=== PATIENT | female | born 1990 | race Caucasian/White ===

== ENCOUNTER 2025-05-18 12:42 | Outpatient (AMB) | payer OTHER, SELFPAY ==
--- NOTE | 2025-05-18 12:45 | A.OFFPC_ITS ---
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 She is transferring [place] [facility]. She has a hx gestational diabetes, hpv. She has been having chest pain for the last few months. She states she gets radiation down the left arm. The pain is improved with sleep/rest. It will last all day and vary in intensity. It does not appear to be worsened with exertion or certain movements. It does not appear to be worsened with food. No difficulty swallowing or notable heartburn. She states she is also getting some lightheaded. The lightheaded sensation does not always correlate with the chest pain but they sometimes occur together. It does get worse if she stands for awhile. She feels better if she sits down and relaxes. She thinks the chest pain is triggered by stress. She is usually well hydrated. No fam hx of heart disease. No palpitations, sob, nausea. No headaches. No weakness. She has been more stressed recently. Nca Certified Concierge: [facility]. States that her last PCP told her that she had HPV but did not elaborate or schedule follow up. She has not seen a health and safety trainer. 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 1. Little interest or pleasure in doing things: not at all 2. Feeling down, depressed, or hopeless: not at all 3. Trouble falling or staying asleep, or sleeping too much: not at all 4. Feeling tired or having little energy: not at all 5. Poor appetite or overeating: not at all 6. Feeling bad about yourself - or that you are a failure or have let yourself or your family down: not at all 7. Trouble concentrating on things, such as reading the newspaper or watching television: not at all 8. Moving or speaking so slowly that other people could have noticed. Or the opposite - being so fidgety or restless that you have been moving around a lot more than usual: not at all 9. Thoughts that you would be better off or of hurting yourself in some way: not at all Total score: 0 Depression Screening Interpretation: Negative Depression Screening Done: Yes 95845 - PHQ-9 Billing: Yes Source: Developed by Drs. Abdelrahman Yao, Bety Alston, Sonido Hadadd and colleagues, with an educational tyron from [employer]. Thrive Questionnaire Date Thrive assessed: 05/18/25 I am a: Patient What is your living situation today?: I have a steady place to live Within the past 12 months, did the food you bought not last and you didn't have the money to get more?: Never true Within the past 12 months, did you worry whether your food would run out before you got money to buy more?: Never true Do you have trouble paying for medicines?: No Do you have trouble getting transportation to medical appointments?: No Do you have trouble paying your heating and electricity bill?: No Do you have trouble taking care of your child, family member or friend?: No Do you have trouble with day-to-day activities such as bathing, preparing meals, shopping, managing finances, etc.?: No Are you currently unemployed and looking for a job?: No Are you interested in more education?: No Please select the resources that you would like help with: None Currently or been in a relationship where the following occur: No concerns reported THRIVE Score: 0 AUDIT C Alcohol Use Questionnaire (AUDIT-C) 1. How often do you have a drink containing alcohol?: 2-3 times a week 2. How many drinks containing alcohol do you have on a typical day when you are drinking?: 1 or 2 3. How often do you have six or more drinks on one occasion?: Never Total Score: 3 BETTY-7 AMB Questionnaire BETTY-7 Date BETTY - 7 assessed: 05/18/25 Feeling nervous, anxious, or on edge: 3 = Nearly every day Not being able to stop or control worryin = More than half the days Worrying too much about different things: 3 = Nearly every day Trouble relaxin = Not at all Being so restless that it is hard to sit still: 0 = Not at all Becoming easily annoyed or irritable: 0 = Not at all Feeling afraid as if something awful might happen: 1 = Several days Total BETTY-7 score (0-4 normal; 5-9 mild; 10-14 moderate; 15-21 severe): 9 Source: Developed by Drs. Abdelrahman Yao, Bety Alston, Sonido Haddad and colleagues, with an educational tyron from [employer]. BETTY-7 Assessment Billing BETTY-7 Assessment Tool: BETTY-7 Assessment 39971 Physical exam (Primary Care) Vital Signs: Last Vital Signs Temp 98.3 F 05/18/25 12:50 Pulse 72 05/18/25 12:50 Resp 12 05/18/25 12:50 BP 102/68 05/18/25 12:50 Pulse Ox 97 05/18/25 12:50 Oxygen Delivery Method Room Air 05/18/25 12:50 BMI result Body Mass Index 25.9 Tobacco/Smoking Status: Tobacco use Status Tobacco use date assessed 05/18/25 05/18/25 12:52 Patient Tobacco Use Status Former Tobacco user 05/18/25 12:52 e-Cigarette/Vaping Use Never Used 05/18/25 12:52 PHQ-9: PHQ-9 Score PHQ-9: Total score 0 05/18/25 14:03 Depression Screening Interpretation: Negative Thrive Assessment: Date of Thrive Assessment Date Thrive assessed 05/18/25 05/18/25 14:03 Currently or been in a relationship where the following occur: No concerns reported Const Orientation/consciousness: patient oriented x3 HENMT Ears: hearing grossly normal bilaterally Neck Thyroid: Thyroid normal Lymphatic: no lymphadenopathy noted Resp Auscultation: clear to auscultation bilaterally Cardio Rate: regular rate Rhythm: regular rhythm Heart sounds: S1 normal heart sound present and S2 normal heart sound present GI Inspection: Yes normal to inspection Palpation (GI): Soft to palpation and Other GI palpation findings present (nontender, no cva tenderness) Auscultation: normoactive bowel sounds Rectal Exam - Female: deferred Skin General skin exam: no rashes or lesions noted Neuro General: patient oriented x3, gait normal and no focal motor deficits Office Procedures EKG Details: EKG today in office normal sinus rhythm at a rate of. Nonspecific STT wave abnormalities noted. No prior study to compare. EKG interpreted myself and Dr. Zelaya. [id number], Complete Coding Level of Care Code New Pt Level 4 (75604) Complex EM visit Add On G2211 Diagnoses Chest pain, atypical R07.89 Dizziness R42 CPT Codes EKG - CPT: 60942-Wefbisnjoanefoyzb, Complete ([id number]) Additional Codes BETTY-7 Assessment Billing - BETTY-7 Assessment Tool: BETTY-7 Assessment 19471 ([id number]) PHQ-9 - 98347 - PHQ-9 Billing: Yes ([id number]) Assessment & Plan Assessment & Plan (1) Chest pain, atypical: Code(s): R07.89 - Other chest pain Category: Medical Plan: Chest x-ray ordered EKG today in office Stress test, Holter and echo ordered given the dizziness in the persistence of symptoms. Short term follow up. Warning signs of chest pain that would require emergent medical treatment were discussed Labs ordered (2) Dizziness: Code(s): R42 - Dizziness and giddiness Category: Medical Plan: As above. Orders: Orders Complete Blood Count Auto Diff 05/18/25 R07.89 - Other chest pain, R42 - Dizziness and giddiness TSH reflex Free T4 05/18/25 R07.89 - Other chest pain, R42 - Dizziness and giddiness Vitamin B12 and Folate 05/18/25 R07.89 - Other chest pain, R42 - Dizziness and giddiness CA stress test 05/18/25 R07. - Other chest pain, R42 - Dizziness and giddiness CA echo transthoracic complete 05/18/25 R0 - Other chest pain, R42 - Dizziness and giddiness Comprehensive Met. Panel 05/18/25 R0. - Other chest pain, R42 - Dizziness and giddiness Hemoglobin A1c 05/18/25 R07. - Other chest pain, R42 - Dizziness and giddiness, R73.01 - Impaired fasting glucose Lipid Panel 05/18/25 R0. - Other chest pain, R42 - Dizziness and giddiness AMB EKG-In Office 05/18/25 R0. - Other chest pain, R42 - Dizziness and giddiness Zinc 05/18/25 R0. - Other chest pain, R42 - Dizziness and giddiness ECG holter monitor 24 hour 05/18/25 R07. - Other chest pain, R42 - Dizziness and giddiness XR chest 2V 05/18/25 R0 - Other chest pain, R42 - Dizziness and giddiness Referrals EMISSIONS TESTING TECHNICIAN Referral B97.7 - Papillomavirus as the cause of diseases classified elsewhere
[2025-05-18 12:50] VITALS: BP 102/68; PULSE 72; RESP 12; TEMP 36.8; O2SAT 97; BMI 25.9
== END 2025-05-18 13:29 | disposition home or self-care (01) ==
LOC: HO.HMCFM 12:42
PROVIDERS: PCP Physician Assistant; Visit Provider Physician Assistant
DX: R07.89 Other chest pain (principal); R42 Dizziness and giddiness

== ENCOUNTER → 2025-05-18 12:42 | Outpatient (BNVA) | payer OTHER, SELFPAY | PROVIDERS: PCP Physician Assistant; Visit Provider Physician Assistant | DX: R42 Dizziness and giddiness (principal); R07.89 Other chest pain; Z86.32 Personal history of gestational diabetes | CPT/HCPCS: 93005; 96127 ==

== ENCOUNTER → 2025-07-07 09:46 | Outpatient (REF) | payer OTHER, SELFPAY ==
--- NOTE | 2025-07-07 09:49 | CA_ITS ---
Acquisition Time: 2025-07-07 09:53:51 Total Exercise Time: 00:09:35 Test Indications: CP DIZZINESS Medications: NONE Protocol: HEIDY Max HR: 162 BPM 86% of Pred: 187 BPM Max BP: 122/54 mmHG Max Work Load: 11.0 METS Exericse stress test with exercise 9 mins 35 secs of Heidy Protocol, achieving 87% MPHR, with reports of 3/10 left upper chest pain at baseline - describes as pinching sensation that resolved with exercise, without any arrythmias, with normotensive response to exercise. Without any EKG changes meeting criteria for ischemia. In recovery, pt continued to have no chest pain. Test reviewed with Dr. Albright. Referred By: Reba Singh Electronically Signed By: Moose Fernández
--- NOTE | 2025-07-07 09:49 | HM_ITS ---
* Total monitoring time one day. * Underlying rhythm is sinus with an average rate of 66/Min. * Isolated ventricular ectopic beat. * No significant pauses or high-grade AV blocks. * No patient markers or diary events. MTDD
--- OUTSIDE RECORDS SUMMARY | 2025-07-07 11:05 | XMS_ITS | Clinical Summary ---
Author Organization [facility] Address [address] [address] Phone Care Team Providers Care Chief Ii Dispatcher Name Role Phone Unknown, Unknown Primary Care Provider Lynsey lable Allergies No known active allergies Medications No known medications Active Problems No known active problems Social History Tobacco Use Types Packs/Day Years Used Date Smoking Tobacco: Never Assessed Education Answer Date Recorded Are you interested in more education? Not on leda e 03/14/2023 Are you concerned about learning? Not on file 03/14/2023 No 03/14/2023 No 03/14/2023 Digital Access Answer Date Recorded No 04/12/2023 No 04/12/2023 Reliable internet access at home? Not on file 04/12/2023 Device with a working camera? Not on file Comments Unknown Sex and Gender Information Value Date Recorded Sex Assigned at Not on file Legal Sex Female 11:19 AM EST Gender Identity Not on file Sexual Orientation Not on file Last Filed Vital Signs Vital Sign Reading Time Taken Comments Blood Pressure 110/70 09/30/2023 1:35 PM EST Pulse 80 09/30/2023 1:35 PM EST Temperature 36.7 C (98 F) 09/30/2023 1:35 PM EST Respiratory Rate 18 09/30/2023 1:35 PM EST Oxygen Saturation 100% 09/30/2023 1:35 PM EST Inhaled Oxygen Concentration - - Weight - - Height - - Body Mass Index - - Plan of Treatment Health Maintenance Due Date Last Done Comments DEPRESSION SCREENING 2004 SMOKING Hx and SMOKELESS TOBACCO SCREENING 2005 HEPATITIS C SCREENING 2010 HIV ONE-TIME SCREENING (18-65 YEARS) 2010 PAP SMEAR 2013 Adult Td,Tdap Booster 01/10/2014 01/10/2004 COVID-19 VACCINE ( season) 2024 01/18/2022, 04/05/2021, 03/07/2021 HIB VACCINES Completed 09/21/1993, 11/18, 1992, Additional history exists HEPATITIS A VACCINES Aged Out No long er eligible based on patient's age to complete this topic MENINGOCOCCAL VACCINES (ACWY) Aged Out No longer eligible based on patient's age to complete this topic MENINGOCOCCAL VACCINES (B) Aged Out N o longer eligible based on patient's age to complete this topic PNEUMOCOCCAL VACCINES (0-49 years) Aged Out No longer eligible based on patient's age to complete this topic Medical Devices Not on file Insurance HMO Member Subscriber Plan / Payer (Ef fective 2017-Present) Name:Mariana Clark Relation to Subscriber:Child Name:JIMYBRITT Date of :1967 (Home) Address: [address] [place] [address] Payer ID:Not on file Type:O Address: [address] PPO [employer] [place] [address] [place], [place] [address]O HMO Member Subscriber Plan / Payer (Ef fective 2017-Present) Name:Mariana Clark Relation to Subscriber:Child Name:SUZANNEJANISBRITT Casarez Date of :1967 (Home) Address: [address] [place] [address] Payer ID:Not on file Type:O [address] O O Member Subscriber Plan / Payer (Ef fective 2017-Present) Name:Mariana Clark Relation to Subscriber:Child Name:BRITT CLARK Date of :1967 (Home) Address: [address] [place] [address] Payer ID:Not on file Type:O Address: [address] PPO HMO Member Subscriber Plan / Payer (Ef fective 2017-Present) Name:Mariana Clark Relation to Subscriber:Child Name:BRITT CLARK Date of :1965 (Home) Address: [address] [place] [address] Payer ID:Not on file Type:O Address: [address] PPO Care Teams Chief Ii Dispatcher Relationship Specialty Start Date End Date Unknown, Unknown, PCP - General 11/28/17 Additional Source Comments The information contained in this document represents components of the legal health record. It is not the complete legal health record.[facility]
== END ==
LOC: HO.CARD 09:46
PROVIDERS: PCP Physician Assistant; Visit Provider Physician Assistant
DX: R07.89 Other chest pain (principal); R42 Dizziness and giddiness
CPT/HCPCS: 93017; 93225

== ENCOUNTER → 2025-07-07 09:49 | Outpatient (BNV) | payer OTHER, SELFPAY | PROVIDERS: PCP Physician Assistant | DX: R07.89 Other chest pain (principal) | CPT/HCPCS: 93016; 93018 ==

== ENCOUNTER 2025-08-20 10:07 | Outpatient (REF) | payer OTHER, SELFPAY ==
--- NOTE | ~2025-08-20 | XR_ITS ---
CLINICAL HISTORY: R07.89 - Other chest pain 2 view chest x-ray. Comparison: None Findings: Normal lung volumes. Lungs are clear. No pneumothorax or pleural effusion. Heart size normal. No passive venous congestion. No midline shift or tracheal deviation. No acute fracture. Nipple piercing on the left Impression: 1. No acute cardiopulmonary disease. This document has been electronically signed by: Modesto Nur MD on 08/22/2025 15:39:14
--- OUTSIDE RECORDS SUMMARY | 2025-08-20 10:11 | XMS_ITS | Clinical Summary ---
Author Organization [facility] Address [address] [address] Phone Care Team Providers Care Sheriff Deputy Name Role Phone Unknown, Unknown Primary Care [...] SMEAR 2013 Adult Td,Tdap Booster 01/10/2014 01/10/2004 INFLUENZA VACCINE (#1) 2025 COVID-19 VACCINE ( season) 2025 01/18/2022, 04/05/2021, 03/07/2021 HIB VACCINES Completed 09/21/1993, [...] Name:BRITT CLARK Date of :1965 (Home) Address: [address] [place] [address] Payer ID:Not on file Type:O Address: [address] PPO [facility] [address] [place], [place] [address] [address] [place], [place] [address]O [facility] Address: [id number] [place], [place] [address]O [facility] HMO HMO O HMO Member Subscriber Plan / Payer (Ef fective 2017-Present) Name:Mariana Clark Relation to Subscriber:Child Name:BRITT CLARK Date of :1965 (Home) Address: [address] [place] [address] Payer ID:Not on file Type:HMO Address: [address] PPO HMO Member Subscriber Plan / Payer (Ef fective 2017-Present) Name:DaphniemansiMariana lomeli Relation to Subscriber:Child Name:BRITT CLARK Date of :1965 (Home) Address: [address] [place] [address] Payer ID:Not on file Type:O Address: [address] PPO Care Teams Sheriff Deputy Relationship Specialty Start Date End Date Unknown, Unknown, PCP - General 11/28/17 Additional Source Comments The information contained in this document represents components of the legal health record. It is not the complete legal health record.[facility]
[2025-08-20 10:53] LABS: MANUAL DIFF FLAG NO
[2025-08-20 11:13] LABS: Hematocrit 41.4 % (37.0-47.0); Hemoglobin 14.2 g/dl (12.0-16.0); Imm Gran Abs Auto 0.01 X10*3/uL (0.00-0.03); Imm Gran Pct Auto 0.2 % (0.0-0.4); Lymphocytes Absolute Auto 1.6 X10*3/uL (1.2-4.9); Mean Corpuscular HGB Conc 34.3 g/dl (31.0-35.0); Mean Corpuscular Hemoglobin 30.4 pg (27.0-33.0); Mean Corpuscular Volume 88.7 fL (80.0-98.0); NRBC Abs Auto 0.000 X10*3/uL (0.0-0.012); NRBC Pct Auto 0.0 /100WBC (0.0-0.2); Platelet Count 244 X10*3/uL (160-400); Red Blood Count 4.67 X10*6/uL (4.20-5.50); White Blood Count 6.5 X10*3/uL (4.8-10.8)
[2025-08-20 12:15] LABS: Folate 11.1 ng/mL (> or = 4.0); Vitamin B12 566 pg/mL (200-900)
[2025-08-20 12:30] LABS: Alanine Aminotransferase 48 U/L (0-31); Albumin Level 4.7 g/dL (3.5-5.0); Alkaline Phosphatase 46 U/L (39-117); Anion Gap 11 (12-20); Aspartate Amino Transferase 114 U/L (5-31); Blood Urea Nitrogen 18 mg/dL (9-16); Calcium 9.4 mg/dL (8.4-10.2); Carbon Dioxide 25 mmol/L (22-29); Chloride 105 mmol/L (96-108); Cholesterol 196 mg/dL (<200); Estimated Glomerular Filt Rate > 60; HDL Cholesterol 68 mg/dL (>40); Potassium 4.2 mmol/L (3.3-5.1); Sodium 137 mmol/L (135-145); Total Protein 7.8 g/dL (6.5-8.0); Triglycerides 77 mg/dL (<150)
== END 2025-08-20 10:08 | disposition home or self-care (01) ==
LOC: HO.XRAY 10:07
PROVIDERS: PCP Physician Assistant; Visit Provider Physician Assistant
DX: Z13.29 Encounter for screening for other suspected endocrine disorder (principal); R42 Dizziness and giddiness; R73.01 Impaired fasting glucose; R07.89 Other chest pain
CPT/HCPCS: 36415; 71046; 80053; 80061; 82607; 82746; 83036; 84443; 84630; 85025

== ENCOUNTER → 2025-08-20 10:49 | Outpatient (BNV) | payer OTHER, SELFPAY | PROVIDERS: PCP Physician Assistant; Visit Provider Radiology Diagnostic Radiology | DX: R07.89 Other chest pain (principal) | CPT/HCPCS: 71046 ==

== ENCOUNTER 2025-08-24 08:52 | Outpatient (REF) | payer OTHER, SELFPAY | END 2025-08-24 08:53 | disposition home or self-care (01) | LOC: HO.WFDLDS 08:52 | PROVIDERS: PCP Physician Assistant; Visit Provider Physician Assistant | DX: R94.5 Abnormal results of liver function studies (principal); R79.89 Other specified abnormal findings of blood chemistry; R19.5 Other fecal abnormalities | CPT/HCPCS: 96127 ==

== ENCOUNTER 2025-08-24 08:52 | Outpatient (AMB) | payer OTHER, SELFPAY ==
--- NOTE | 2025-08-24 08:53 | A.OFFPC_ITS ---
Vital Signs 08/24/25 08:56 Height 5 ft 5.04 in Weight 122 lb 6 oz BMI 20.3 BP 96/62 Blood Pressure Location Lt brachial Position Sitting Respiration 12 Pulse 69 Pulse Source Pulse Oximeter Pulse Oximetry (%) 98 Oxygen Delivery Method Room Air Intake Visit Reasons: labs and meds Intake Note: Follow and lab results. Needs to reschedule echo. Interior Systems Carpenter Required: No Allergies No Known Allergies Allergy (Verified 08/24/25 08:56) Medication List - Last Reconciled 08/24/25 by Reba Singh PA-C No Known Home Meds Tobacco use date assessed: 05/18/25 Dental Screening Dental Screen Date: 05/18/25 HPI labs and meds HPI Details Patient is a 35-year-old female who presents today for a follow up. She has a hx gestational diabetes, hpv. She has lost 30 lbs in the last 2 months with diet and exercise. She hired a personal clothing laundry aide. She quit drinking. She states for years she was drinking heavily and then gradually quit a few weeks ago. She tells me that at times she has loose stools but it seems to be triggered by certain foods that are fried or in fat. It is not all the time. She tells me she wants to make sure that she does not have a parasite. There has been no travel or any known sick contacts. No abdominal pain, fevers or chills. No blood in her stool. No palpitations, sob, nausea. No headaches. No weakness. [employer]otive [employer] In[employer] Servicer: [facility] States that her last PCP told her that she had HPV but did not elaborate or schedule follow up. She has not seen a logistics service representative. 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 1. Little interest or pleasure in doing things: not at all 2. Feeling down, depressed, or hopeless: not at all 3. Trouble falling or staying asleep, or sleeping too much: not at all 4. Feeling tired or having little energy: not at all 5. Poor appetite or overeating: not at all 6. Feeling bad about yourself - or that you are a failure or have let yourself or your family down: not at all 7. Trouble concentrating on things, such as reading the newspaper or watching television: not at all 8. Moving or speaking so slowly that other people could have noticed. Or the opposite - being so fidgety or restless that you have been moving around a lot more than usual: not at all 9. Thoughts that you would be better off or of hurting yourself in some way: not at all Total score: 0 Depression Screening Interpretation: Negative Depression Screening Done: Yes 49095 - PHQ-9 Billing: Yes Source: Developed by Drs. Abdelrahman Yao, Bety Alston, Sonido Haddad and colleagues, with an educational tyron from [employer]. Thrive Questionnaire Date Thrive assessed: 08/17/25 I am a: Patient What is your living situation today?: I have a steady place to live Within the past 12 months, did the food you bought not last and you didn't have the money to get more?: Never true Within the past 12 months, did you worry whether your food would run out before you got money to buy more?: Never true Do you have trouble paying for medicines?: No Do you have trouble getting transportation to medical appointments?: No Do you have trouble paying your heating and electricity bill?: No Do you have trouble taking care of your child, family member or friend?: No Do you have trouble with day-to-day activities such as bathing, preparing meals, shopping, managing finances, etc.?: No Are you currently unemployed and looking for a job?: No Are you interested in more education?: No Please select the resources that you would like help with: None Currently or been in a relationship where the following occur: No concerns reported THRIVE Score: 0 AUDIT C Alcohol Use Questionnaire (AUDIT-C) 1. How often do you have a drink containing alcohol?: Never 3. How often do you have six or more drinks on one occasion?: Never Total Score: 0 BETTY-7 AMB Questionnaire BETTY-7 Date BETTY - 7 assessed: 05/18/25 Feeling nervous, anxious, or on edge: 0 = Not at all Not being able to stop or control worryin = Not at all Worrying too much about different things: 1 = Several days Trouble relaxin = Not at all Being so restless that it is hard to sit still: 0 = Not at all Becoming easily annoyed or irritable: 0 = Not at all Feeling afraid as if something awful might happen: 1 = Several days Total BETTY-7 score (0-4 normal; 5-9 mild; 10-14 moderate; 15-21 severe): 2 Source: Developed by Drs. Abdelrahman Yao, Bety Alston, Sonido Haddad and colleagues, with an educational tyron from [employer]. BETTY-7 Assessment Billing BETTY-7 Assessment Tool: BETTY-7 Assessment 11481 Physical exam (Primary Care) Vital Signs: Last Vital Signs Pulse 69 08/24/25 08:56 Resp 12 08/24/25 08:56 BP 96/62 08/24/25 08:56 Pulse Ox 98 08/24/25 08:56 Oxygen Delivery Method Room Air 08/24/25 08:56 BMI result Body Mass Index 20.3 Tobacco/Smoking Status: Tobacco use Status Tobacco use date assessed 05/18/25 08/24/25 08:55 Patient Tobacco Use Status Former Tobacco user 08/24/25 08:59 e-Cigarette/Vaping Use Never Used 08/24/25 08:59 PHQ-9: PHQ-9 Score PHQ-9: Total score 0 08/24/25 09:03 Depression Screening Interpretation: Negative Thrive Assessment: Date of Thrive Assessment Date Thrive assessed 08/17/25 08/24/25 08:55 Currently or been in a relationship where the following occur: No concerns reported Const Orientation/consciousness: patient oriented x3 HENMT Ears: hearing grossly normal bilaterally Neck Thyroid: Thyroid normal Lymphatic: no lymphadenopathy noted Resp Auscultation: clear to auscultation bilaterally Cardio Rate: regular rate Rhythm: regular rhythm Heart sounds: S1 normal heart sound present and S2 normal heart sound present GI Inspection: Yes normal to inspection Palpation (GI): Soft to palpation and Other GI palpation findings present (nontender, no cva tenderness) Auscultation: normoactive bowel sounds Rectal Exam - Female: deferred Skin General skin exam: no rashes or lesions noted Neuro General: patient oriented x3, gait normal and no focal motor deficits Results Reviewed Results Reviewed: Laboratory Tests 08/20/25 10:50 WBC 6.5 RBC 4.67 Hgb 14.2 Hct 41.4 Plt Count 244 Sodium 137 Potassium 4.2 Chloride 105 Carbon Dioxide 25 Anion Gap 11 L BUN 18 H Creatinine 0.69 Estimated GFR > 60 Random Glucose 77 Hemoglobin A1c % 5.1 Calcium 9.4 Total Bilirubin 0.8 AST 114 H ALT 48 H Alkaline Phosphatase 46 Total Protein 7.8 Albumin 4.7 Triglycerides 77 Cholesterol 196 LDL Cholesterol, Calc 113 H HDL Cholesterol 68 Vitamin B12 566 Folate 11.1 TSH 0.83 Zinc 80 Coding Level of Care Code Est Pt Level 4 (50628) Complex EM visit Add On G2211 Diagnoses Loose stools R19.5 Elevated LFTs R79.89 Additional Codes PHQ-9 - 65224 - PHQ-9 Billing: Yes ([id number]) BETTY-7 Assessment Billing - BETTY-7 Assessment Tool: BETTY-7 Assessment 91934 ([id number]) Assessment & Plan Assessment & Plan (1) Loose stools: Code(s): R19.5 - Other fecal abnormalities Category: Medical Plan: wants to make sure she does not have a parasite stool study ordered advised to avoid foods that trigger sx short term f/u or sooner if needed (2) Elevated LFTs: Code(s): R79.89 - Other specified abnormal findings of blood chemistry Category: Medical Plan: u/s ordered will repeat in one month congratulated her on sobriety Orders: Orders Ova and Parasite 08/24/25 R19.5 - Other fecal abnormalities, R79.89 - Other specified abnormal findings of blood chemistry
[2025-08-24 08:56] VITALS: BP 96/62; PULSE 69; RESP 12; O2SAT 98; BMI 20.3
== END 2025-08-24 09:17 | disposition home or self-care (01) ==
LOC: HO.HMCFM 08:52
PROVIDERS: PCP Physician Assistant; Visit Provider Physician Assistant
DX: R19.5 Other fecal abnormalities (principal); R79.89 Other specified abnormal findings of blood chemistry

== ENCOUNTER 2025-08-27 11:53 | Outpatient (REF) | payer OTHER, SELFPAY ==
--- OUTSIDE RECORDS SUMMARY | 2025-08-27 11:56 | XMS_ITS | Clinical Summary ---
Author Organization [facility] Address [address] [address] Phone Care Team Providers Care Rn Baby Name Role Phone Unknown, Unknown Primary Care [...] topic Medical Devices Not on file Insurance Member Subscriber Plan / Payer (Ef fective 2017-Present) Name:Mariana Clark Relation to Subscriber:Child Name:AMBERBRITT Date of :1967 (Home) Address: [address] [place] [address] Payer ID:Not on file Type:O [address] [facility] [address] [place], [place] [address] Address[facility] [id number] [place], [place] [address] [facility] [address] [place] [place] [address] [place] [place] [address] [facility] Address: [address] [address] [place] PPO Care Teams Rn Baby Relationship Specialty Start Date End Date Unknown, Unknown, PCP - General 11/28/17 Additional Source Comments The information contained in this document represents components of the legal health record. It is not the complete legal health record.[facility]
== END 2025-08-27 11:54 | disposition home or self-care (01) ==
LOC: HO.LNP 11:53
PROVIDERS: Visit Provider Physician Assistant
DX: Z13.89 Encounter for screening for other disorder (principal)